=== PATIENT | female | born 1965 | race Hispanic/Latino ===

== ENCOUNTER → 2019-11-13 | Outpatient (CLI) | payer MEDICARE ==
[~2019-11-13] MED LIST: ALLOPURINOL100 MG PO; CYCLOSPORINE25 MG PO; FERROUS SULFAT325 MG PO; FUROSEMIDE40 MG PO; JARDIANCE10 MG PO; METOPROLOL SUCC50 MG PO; PIOGLITAZONE HC45 MG PO; PRAVASTATIN SOD40 MG PO; PREDNISONE5 MG PO; SODIUM BICARBO650 MG PO; VITAMIN D22000 UNIT PO; ZETIA10 MG PO
[2019-11-13 17:50] LABS: BASOPHILS % 0.2 % (0.0-1.0); EOSINOPHILS % 0.2 % (0.0-6.0); HEMATOCRIT 36.4 % (34.2-44.1); HEMOGLOBIN 11.2 g/dL (12.0-16.0); LYMPHOCYTES % 22.4 % (18.0-39.1); MEAN CORPUSCULAR HEMOGLOBIN 28.6 pg (28-32); MEAN CORPUSCULAR HGB CONC 30.8 g/dL (31-35); MEAN CORPUSCULAR VOLUME 93.1 fL (81-99); MONOCYTES # (AUTO) 0.8 (0.2-0.8); MONOCYTES % 8.5 % (4.4-11.3); PLATELET COUNT 283 x10e3/uL (140-360); RED BLOOD COUNT 3.91 x10e6/uL (3.6-5.1); RED CELL DISTRIBUTION WIDTH 15.5 % (11.7-14.4)
[2019-11-13 18:09] LABS: ANION GAP 13.7 mmol/L (8-16); CALCIUM 9.3 mg/dL (8.4-10.2); CREATININE, SERUM 3.09 mg/dL (0.57-1.11)
[2019-11-13 18:11] LABS: POTASSIUM 5.7 mmol/L (3.5-5.1)
== END ==
LOC: RAD 05:00 → EDSTATUS 11-15 06:30
PROVIDERS: ATTEND Internal Medicine Gastroenterology
DX: Z01.818 Encounter for other preprocedural examination (principal); Z12.11 Encounter for screening for malignant neoplasm of colon; K57.90 Diverticulosis of intestine, part unspecified, without perforation or abscess without bleeding; E11.9 Type 2 diabetes mellitus without complications; I10 Essential (primary) hypertension; Z71.3 Dietary counseling and surveillance; E66.01 Morbid (severe) obesity due to excess calories; Z86.010 Personal history of colon polyps
CPT/HCPCS: 36415; 80048; 85025; 93005

== ENCOUNTER → 2020-03-19 | Day surgery (SDC) | payer MEDICARE, OTHER ==
[~2020-03-19] MED LIST changes: +BASAGLAR K100 UNIT/1 SC; +FENTANYL CITRATE/PF 100MCG/2 ML INJ ONE; +LIDOCAINE HCL 2% LOCAL INJ 5 ML SDV VIAL INJ ONE; +LISINOPRIL10 MG PO; +MIDAZOLAM HCL 2 MG/2 ML VIAL ONE; +NOVOLOG SC; +PROPOFOL IV EMULSION 10 MG/ML 20 ML VIAL ONE
[2020-03-19 08:00] VITALS: BP 133/69
== END | disposition home or self-care (01) ==
LOC: OR 05:43
PROVIDERS: ATTEND Internal Medicine Gastroenterology
DX: K57.30 Diverticulosis of large intestine without perforation or abscess without bleeding (principal); D12.8 Benign neoplasm of rectum; K64.8 Other hemorrhoids; E11.22 Type 2 diabetes mellitus with diabetic chronic kidney disease; I12.0 Hypertensive chronic kidney disease with stage 5 chronic kidney disease or end stage renal disease; N18.6 End stage renal disease; Z71.3 Dietary counseling and surveillance; E66.01 Morbid (severe) obesity due to excess calories; Z68.41 Body mass index [BMI] 40.0-44.9, adult; Z01.810 Encounter for preprocedural cardiovascular examination; Z01.812 Encounter for preprocedural laboratory examination; Z11.59 Encounter for screening for other viral diseases; Z79.4 Long term (current) use of insulin
CPT/HCPCS: 36415; 45385; 82948; 87635; 88305; 93005; J2001; J2250; J2704; J3010; 45378

== ENCOUNTER → 2024-06-13 | Day surgery (SDC) | payer MEDICARE ==
[~2024-06-13] MED LIST changes: +ASPIRIN81 MG PO; +COREG12.5 MG PO; +FAMOTIDINE20 MG PO; -FENTANYL CITRATE/PF 100MCG/2 ML INJ ONE; +HYDROCHLOROTHIA25 MG PO; -MIDAZOLAM HCL 2 MG/2 ML VIAL ONE; -PROPOFOL IV EMULSION 10 MG/ML 20 ML VIAL ONE; +PROPOFOL IV EMULSION 10 MG/ML 50 ML VIAL IV ONE; +PROPOFOL IV EMULSION 50 ML IV ONE
[2024-06-13] MEDS: LACTATED RINGER'S 1,000 ML ONE (07:38)
[2024-06-13 10:10] VITALS: BP 119/65; PULSE 72; RESP 16; TEMP 97.3; O2SAT 95
== END | disposition home or self-care (01) ==
LOC: OR 06:22
PROVIDERS: ATTEND Internal Medicine Gastroenterology
DX: R10.32 Left lower quadrant pain (principal); Z86.010 Personal history of colon polyps; K29.50 Unspecified chronic gastritis without bleeding; K21.9 Gastro-esophageal reflux disease without esophagitis; K44.9 Diaphragmatic hernia without obstruction or gangrene; K57.30 Diverticulosis of large intestine without perforation or abscess without bleeding; K64.8 Other hemorrhoids; E11.9 Type 2 diabetes mellitus without complications; I10 Essential (primary) hypertension; E78.5 Hyperlipidemia, unspecified; E66.01 Morbid (severe) obesity due to excess calories; Z01.810 Encounter for preprocedural cardiovascular examination; Z79.82 Long term (current) use of aspirin; Z79.4 Long term (current) use of insulin; Z79.899 Other long term (current) drug therapy; Z68.41 Body mass index [BMI] 40.0-44.9, adult
CPT/HCPCS: 43239; 45378; 88305; 88342; 93005; J2001; J2704; J7121

== ENCOUNTER 2024-08-02 14:36 | Observation (INO) | payer MEDICARE ==
[~2024-08-02] VITALS: Ht 160 cm; Wt 94.3 kg
[~2024-08-02 14:36] MED LIST changes: -LIDOCAINE HCL 2% LOCAL INJ 5 ML SDV VIAL INJ ONE; -PROPOFOL IV EMULSION 10 MG/ML 50 ML VIAL IV ONE; -PROPOFOL IV EMULSION 50 ML IV ONE
[2024-08-02 16:18] LABS: BILIRUBIN,URINE NEGATIVE (NEGATIVE); CLARITY,URINE SL CLOUDY (CLEAR); COLOR,URINE YELLOW (YELLOW); GLUCOSE, URINE NEGATIVE (NEGATIVE); KETONES,URINE NEGATIVE (NEGATIVE); LEUKOCYTE ESTERASE ,URINE NEGATIVE (NEGATIVE); NITRITE,URINE NEGATIVE (NEGATIVE); PH,URINE 7.5 (5 - 7); PROTEIN,URINE DIPSTICK TRACE (NEGATIVE); URINE UROBILINOGEN 0.2 mg/dL (0.2 - 1)
[2024-08-02 16:24] LABS: BASOPHILS % 0.3 % (0.0-1.0); EOSINOPHILS % 0.3 % (0.0-6.0); HEMATOCRIT 33.3 % (34.2-44.1); HEMOGLOBIN 10.4 g/dL (12.0-16.0); LYMPHOCYTES # (AUTO) 0.9 (1.0-3.2); LYMPHOCYTES % 11.5 % (18.0-39.1); MEAN CORPUSCULAR HEMOGLOBIN 29.5 pg (28-32); MEAN CORPUSCULAR HGB CONC 31.2 g/dL (31-35); MEAN CORPUSCULAR VOLUME 94.6 fL (81-99); MONOCYTES # (AUTO) 0.3 (0.2-0.8); MONOCYTES % 3.6 % (4.4-11.3); NEUTROPHILS # (AUTO) 6.6 (2.1-6.9); PLATELET COUNT 258 x10e3/uL (140-360); RED BLOOD COUNT 3.52 x10e6/uL (3.6-5.1); RED CELL DISTRIBUTION WIDTH 13.8 % (11.7-14.4)
[2024-08-02 16:43] LABS: BACTERIA,URINE RARE /HPF; EPITHELIAL CELLS,URINE FEW /LPF; WBC,URINE (MAN) 0-5 /HPF (0-5)
[2024-08-02 16:43] LABS: ALBUMIN 3.5 g/dL (3.5-5.0); ALBUMIN/GLOBULIN RATIO 0.8 (0.8-2.0); ANION GAP 18.2 mmol/L (8-16); BILIRUBIN,TOTAL 0.4 mg/dL (0.2-1.2); CALCIUM 9.6 mg/dL (8.4-10.2); CREATININE, SERUM 3.22 mg/dL (0.57-1.11); TOTAL PROTEIN 7.8 g/dL (6.5-8.1)
[2024-08-02 16:48] LABS: POTASSIUM 5.2 mmol/L (3.5-5.1)
[2024-08-02] MEDS ORDERED: SODIUM CHLORIDE FLUSH 10 ML SYR INJ PRN (18:00)
[2024-08-02] MEDS: DEXTROSE 50% SYRINGE 50 ML IV ONE (18:31)
[2024-08-02] MEDS: CALCIUM GLUC 1 G/50 ML NACL 100 ML IV ONE (18:31)
[2024-08-02] MEDS: SODIUM BICARBONATE 8.4% INJ 50 ML SYR IV ONE (18:31)
[2024-08-02] MEDS: ONDANSETRON HCL INJ 2MG/ML 2ML 2 MG/ML VIAL IV PRN (18:32)
[2024-08-02] MEDS: INSULIN REGULAR, HUMAN 100 UNIT/1 ML IV ONE (18:35)
[2024-08-02 19:09] VITALS: PULSE 68; RESP 16; O2SAT 97
[2024-08-02] MEDS: ALBUTEROL SULF 0.083% NEB SOLN 3 ML NEB NEB ONE (19:09)
[2024-08-02 19:25] VITALS: PULSE 57; RESP 16; TEMP 98.2
[2024-08-02 21:50] VITALS: BP 134/80; PULSE 58; RESP 18; TEMP 98.3; O2SAT 100
[2024-08-02 22:06] VITALS: BP 134/80; PULSE 58; RESP 18; TEMP 98.3; O2SAT 100
[2024-08-03] VITALS (10 sets, daily range): BP systolic 132–168; BP diastolic 65–87; PULSE 18–66; RESP 16–20; TEMP 97.2–98.3; O2SAT 97–100
[2024-08-03] MEDS ORDERED: CYCLOSPORINE25 MG PO (04:33)
[2024-08-03] MEDS ORDERED: BASAGLAR K100 UNIT/1 (04:41)
[2024-08-03 05:29] LABS: BASOPHILS % 0.4 % (0.0-1.0); EOSINOPHILS # (AUTO) 0.1 (0.0-0.4); EOSINOPHILS % 1.6 % (0.0-6.0); HEMATOCRIT 30.2 % (34.2-44.1); HEMOGLOBIN 9.2 g/dL (12.0-16.0); LYMPHOCYTES # (AUTO) 1.5 (1.0-3.2); LYMPHOCYTES % 30.2 % (18.0-39.1); MEAN CORPUSCULAR HEMOGLOBIN 29.1 pg (28-32); MEAN CORPUSCULAR HGB CONC 30.5 g/dL (31-35); MEAN CORPUSCULAR VOLUME 95.6 fL (81-99); MONOCYTES # (AUTO) 0.6 (0.2-0.8); MONOCYTES % 11.7 % (4.4-11.3); NEUTROPHILS # (AUTO) 2.8 (2.1-6.9); NEUTROPHILS % 55.7 % (38.7-80.0); PLATELET COUNT 226 x10e3/uL (140-360); RED BLOOD COUNT 3.16 x10e6/uL (3.6-5.1); RED CELL DISTRIBUTION WIDTH 13.2 % (11.7-14.4); WHITE BLOOD COUNT 5.03 x10e3/uL (4.8-10.8)
[2024-08-03 06:01] LABS: ANION GAP 18.3 mmol/L (8-16); BILIRUBIN,TOTAL 0.4 mg/dL (0.2-1.2); CALCIUM 9.6 mg/dL (8.4-10.2); CREATININE, SERUM 3.35 mg/dL (0.57-1.11); POTASSIUM 4.3 mmol/L (3.5-5.1)
[2024-08-03 06:02] LABS: ALBUMIN 3.1 g/dL (3.5-5.0); ALBUMIN/GLOBULIN RATIO 0.8 (0.8-2.0); TOTAL PROTEIN 6.9 g/dL (6.5-8.1)
[2024-08-03 10:54] LABS: BAND NEUTROPHILS % (MANUAL) 1 %; EOSINOPHILS % (MANUAL) 1 % (0-7); LYMPHOCYTES % (MANUAL) 25 % (19-48); MONOCYTES % (MANUAL) 7 % (3.4-9.0); NEUTROPHILS % (MANUAL) 65 % (40-74); PLATELET ESTIMATE ADEQUATE; PLATELET MORPHOLOGY COMMENT NORMAL; REACTIVE LYMPHOCYTES 1
[2024-08-03] MEDS: CARVEDILOL 12.5 MG TAB PO SCH (17:36)
[2024-08-03] MEDS: FAMOTIDINE 20 MG TAB PO SCH (17:36)
[2024-08-03] MEDS: FERROUS SULFATE 325 MG TAB PO SCH (17:36)
[2024-08-03] MEDS: [UNRECOGNIZED DRUG - OTHER] SQ SCH (20:00)
[2024-08-03] MEDS: INSULIN GLARGINE HUM REC ANLOG 3 UNIT SQ SCH (20:00)
[2024-08-03] MEDS: CYCLOSPORINE 25 MG CAP PO SCH (20:01)
[2024-08-03] MEDS: NITROFURANTOIN MACROCRYSTALS 100 MG CAP PO SCH (20:01)
[2024-08-03] MEDS: PRAVASTATIN 20 MG TAB PO SCH (20:02)
[2024-08-04 03:22] VITALS: BP 153/77; PULSE 61; RESP 19; TEMP 97.6; O2SAT 99
[2024-08-04 07:47] VITALS: BP 134/81; PULSE 56; RESP 18; TEMP 97.3; O2SAT 100
[2024-08-04] MEDS: CYCLOSPORINE 25 MG CAP PO SCH (08:09)
[2024-08-04] MEDS: ALLOPURINOL 100 MG TAB PO SCH (08:10)
[2024-08-04] MEDS: PREDNISONE 5 MG TAB PO SCH (08:10)
[2024-08-04] MEDS: HYDROCHLOROTHIAZIDE 25 MG TAB PO SCH (08:10)
[2024-08-04] MEDS: ASPIRIN 81 MG CHEW TAB PO SCH (08:10)
[2024-08-04] MEDS: INSULIN GLARGINE 100 UNITS/ML VIAL SQ SCH (08:16)
[2024-08-04 08:49] VITALS: BP 134/81; PULSE 66; RESP 18; TEMP 97.3; O2SAT 100
[2024-08-04 11:51] VITALS: BP 157/91; PULSE 59; RESP 19; TEMP 97.9; O2SAT 100
== END 2024-08-04 12:39 | disposition home or self-care (01) ==
LOC: ER 15:58 → ERHOLD 17:52 → MED/SURG2 21:17
PROVIDERS: ADMIT Internal Medicine; ATTEND Internal Medicine
DX: E87.5 Hyperkalemia (principal); E11.65 Type 2 diabetes mellitus with hyperglycemia; N39.0 Urinary tract infection, site not specified; E11.22 Type 2 diabetes mellitus with diabetic chronic kidney disease; I12.9 Hypertensive chronic kidney disease with stage 1 through stage 4 chronic kidney disease, or unspecified chronic kidney disease; N18.4 Chronic kidney disease, stage 4 (severe); Z94.0 Kidney transplant status; Z79.4 Long term (current) use of insulin; E78.5 Hyperlipidemia, unspecified; D63.8 Anemia in other chronic diseases classified elsewhere; Z79.82 Long term (current) use of aspirin; Z79.899 Other long term (current) drug therapy
CPT/HCPCS: 36415 ×3; 80053 ×2; 81001; 82948 ×3; 84132; 85025 ×2; 93005; 94640; 94799; 99284; G0378 ×3; J1817; J2405; J7512; J7515 ×2; J7799